=== PATIENT | male | born 1935 | race Caucasian/White ===

== ENCOUNTER 2019-07-24 15:19 | Inpatient (IN) | payer MEDICARE, OTHER ==
[~2019-07-24] VITALS: Ht 182.9 cm; Wt 100.0 kg
--- NOTE | 2019-07-24 15:55 | NUR ---
BRENT DAUGHTER [phone]
[2019-07-24 16:03] LABS: LYMPHOCYTES # (AUTO) 0.9 X10'3 (1.1-4.8); MEAN CORPUSCULAR HEMOGLOBIN 27.7 PG (27.0-31.0); MONOCYTES # (AUTO) 0.8 X10'3 (0-0.9); RED BLOOD COUNT 5.61 X10'6 (4.70-6.10); WHITE BLOOD COUNT 4.8 X10'3 (4.5-11.0)
[2019-07-24 16:05] LABS: BASOPHILS % (AUTO) 0.8 % (0-1); EOSINOPHILS % (AUTO) 0.5 % (0-6); HEMATOCRIT 47.3 % (42.0-52.0); HEMOGLOBIN 15.6 g/dl (14.0-17.9); LYMPHOCYTES % (AUTO) 19.4 % (21-51); MEAN CORPUSCULAR HGB CONC 32.9 g/dL (33.0-36.5); MEAN CORPUSCULAR VOLUME 84.4 FL (78-98); MEAN PLATELET VOLUME 9.8 FL (7.4-10.4); MONOCYTES % (AUTO) 16.8 % (2-12); NEUTROPHILS % (AUTO) 62.5 % (42-75); PLATELET COUNT 86 X10'3 (140-440); RED CELL DISTRIBUTION WIDTH 19.1 % (11.5-14.5)
[2019-07-24 16:15] LABS: PARTIAL THROMBOPLASTIN TIME 29 SECONDS (22-32)
[2019-07-24] MEDS ORDERED: MAGN64TA13 PO (16:18)
[2019-07-24] MEDS ORDERED: ALBU8.5H8 INH (16:18)
[2019-07-24] MEDS ORDERED: LOSA25TA41 PO (16:18)
[2019-07-24] MEDS ORDERED: METO-395 PO (16:18)
[2019-07-24] MEDS ORDERED: FURO40TA4 PO (16:18)
[2019-07-24] MEDS ORDERED: GABA-532 PO (16:18)
[2019-07-24] MEDS ORDERED: POTA20TA19 PO (16:22)
[2019-07-24 16:24] LABS: ANISOCYTOSIS 2+; GIANT PLATELET FEW; NUCLEATED RED BLOOD CELLS 1 /100WBC (0-0); PLATELET ESTIMATE DECREASED; TOTAL CELLS COUNTED 100
[2019-07-24 16:35] LABS: ALANINE AMINOTRANSFERASE 139 U/L (12-78); ALBUMIN 4.1 G/DL (3.4-5.0); ALBUMIN/GLOBULIN RATIO 0.9 (1.1-1.5); ALKALINE PHOSPHATASE 98 IU/L (46-116); ANION GAP 11 (8-16); ASPARTATE AMINO TRANSFERASE 153 U/L (10-37); BILIRUBIN,TOTAL 1.8 MG/DL (0.1-1.0); BLOOD UREA NITROGEN 55 MG/DL (7-18); BUN/CREATININE RATIO 25.5 (5.4-32.0); CALCIUM 9.3 MG/DL (8.5-10.1); CHLORIDE 104 MMOL/L (99-107); CREATININE 2.16 MG/DL (0.60-1.10); GLUCOSE 112 MG/DL (70-104); SODIUM 139 MMOL/L (135-145); TOTAL CARBON DIOXIDE 23.7 MMOL/L (24-32); TOTAL PROTEIN 8.5 G/DL (6.4-8.2); eGFR 29 ML/MIN
[2019-07-24 16:41] LABS: MAGNESIUM 2.1 MG/DL (1.5-2.4)
--- NOTE | 2019-07-24 16:45 | NUR ---
PT UNABLE TO CONTINUE TO TOLERATE GURNEY. PT PLACED IN RECLINER CHAIR AND REPORTS INCREASED COMFORT
--- NOTE | 2019-07-24 18:40 | NUR ---
LAB AT BEDSIDE FOR DRAW
--- NOTE | 2019-07-24 18:42 | NUR ---
NOTIFIED DR TIPTON THAT PT IS STLL WAITING TO HAND OFF HER NGOZI KAUFFMAN @[phone] FOR THE SCHDULED TAVR PROCEDURE SCHDULED FOR THIS COMING july [address] TIPTON ASKED UTILIZATION MANAGEMENT MANAGER TO PHONE NGOZI ZEE AGAIN FOR CONTACT
[2019-07-24] MEDS ORDERED: furosemide 10 MG/1 ML 10ml inj IV ONE ×3 (19:05→19:30)
[2019-07-24] MEDS ORDERED: furosemide 20 MG/2 ML vial IV ONE (19:30)
[2019-07-24] MEDS ORDERED: acetaminophen 325mg tablet PO PRN ×2 (19:50)
[2019-07-24] MEDS ORDERED: docusate sod 100mg capsule PO PRN (19:50)
[2019-07-24] MEDS ORDERED: mag hydrox/Alum hydrox/simeth 30ml oral suspension PO PRN (19:50)
[2019-07-24] MEDS ORDERED: ipratropium/albuterol 3ml nebule NEB PRN (19:50)
[2019-07-24] MEDS ORDERED: HYDROcodone/acetaminophen 10/325mg tab PO PRN (19:50)
[2019-07-24] MEDS ORDERED: HYDROcodone/acetaminophen 5mg/325mg tablet PO PRN (19:50)
[2019-07-24] MEDS ORDERED: ondansetron/PF 4mg/2ml inj IV PRN (19:50)
[2019-07-24] MEDS: heparin, porcine 5000 units/ml vial SQ SCH (20:00)
--- NOTE | 2019-07-24 20:21 | NUR ---
Patient in room ED 9. I have received report from Britany HERNANDEZ and had the opportunity to ask questions and awaiting arrival of patient to the PCU unit.
--- NOTE | 2019-07-24 20:24 | NUR ---
REPORT GIVEN TO LÁZARO HERNANDEZ
--- NOTE | 2019-07-24 20:40 | NUR ---
Patient arrived to the PCU unit at this time into room 3027B. He is alert and oriented and able to make his needs known. He transferred from the gurney to the bed independently using his rolling walker. is accompanying him. Vitals are stable. He is on 3 liters NC. Denies any pain at this time. All safety precautions in place. Call light in reach. Will continue to monitor.
[2019-07-24 20:45] VITALS: BP 116/77
[2019-07-24] MEDS ORDERED: losartan 25mg tablet PO SCH (21:00)
[2019-07-24] MEDS: magnesium Cl slow-release 64mg tablet PO SCH (21:07)
[2019-07-24 22:00] VITALS: BP 130/99
[2019-07-25 02:00] VITALS: BP 113/82
[2019-07-25 03:50] LABS: MEAN PLATELET VOLUME 8.8 FL (7.4-10.4); MONOCYTES # (AUTO) 0.8 X10'3 (0-0.9); RED BLOOD COUNT 5.04 X10'6 (4.70-6.10); WHITE BLOOD COUNT 4.4 X10'3 (4.5-11.0)
[2019-07-25 03:51] LABS: BASOPHILS % (AUTO) 0.8 % (0-1); EOSINOPHILS % (AUTO) 0.7 % (0-6); HEMATOCRIT 42.3 % (42.0-52.0); LYMPHOCYTES # (AUTO) 0.7 X10'3 (1.1-4.8); LYMPHOCYTES % (AUTO) 15.4 % (21-51); MEAN CORPUSCULAR HEMOGLOBIN 27.9 PG (27.0-31.0); MEAN CORPUSCULAR HGB CONC 33.2 g/dL (33.0-36.5); MEAN CORPUSCULAR VOLUME 83.9 FL (78-98); NEUTROPHILS # (AUTO) 2.9 X10'3 (1.8-7.7); NEUTROPHILS % (AUTO) 65.1 % (42-75); PLATELET COUNT 69 X10'3 (140-440); RED CELL DISTRIBUTION WIDTH 18.7 % (11.5-14.5)
[2019-07-25 04:00] LABS: ALANINE AMINOTRANSFERASE 120 U/L (12-78); ALBUMIN 3.5 G/DL (3.4-5.0); ALBUMIN/GLOBULIN RATIO 0.9 (1.1-1.5); ALKALINE PHOSPHATASE 86 IU/L (46-116); ANION GAP 12 (8-16); ASPARTATE AMINO TRANSFERASE 131 U/L (10-37); BILIRUBIN,TOTAL 1.6 MG/DL (0.1-1.0); BLOOD UREA NITROGEN 57 MG/DL (7-18); BUN/CREATININE RATIO 27.4 (5.4-32.0); CALCIUM 8.9 MG/DL (8.5-10.1); CHLORIDE 106 MMOL/L (99-107); CREATININE 2.08 MG/DL (0.60-1.10); GLUCOSE 116 MG/DL (70-104); POTASSIUM 4.5 MMOL/L (3.5-5.1); SODIUM 140 MMOL/L (135-145); TOTAL CARBON DIOXIDE 21.6 MMOL/L (24-32); TOTAL PROTEIN 7.3 G/DL (6.4-8.2); eGFR 31 ML/MIN
[2019-07-25 04:25] LABS: TOTAL CELLS COUNTED 100
[2019-07-25 04:26] LABS: PLATELET ESTIMATE DECREASED
[2019-07-25 04:27] LABS: ANISOCYTOSIS 2+; ELLIPTOCYTES 1+
--- NOTE | 2019-07-25 06:29 | NUR ---
Problems reprioritized. Patient report given, questions answered & plan of care reviewed with Grant HERNANDEZ.
--- NOTE | 2019-07-25 06:40 | NUR ---
Patient in room PCU 3027. I have received report from Kathya HERNANDEZ and had the opportunity to ask questions and assume patient care.
[2019-07-25 07:00] VITALS: BP 118/89
[2019-07-25] MEDS: magnesium Cl slow-release 64mg tablet PO SCH (07:47)
[2019-07-25] MEDS: heparin, porcine 5000 units/ml vial SQ SCH (07:48)
[2019-07-25] MEDS ORDERED: gabapentin 300mg capsule PO SCH (08:00)
[2019-07-25] MEDS ORDERED: metoprolol succinate 25mg (24-HOUR) SR. Tablet PO SCH (08:00)
[2019-07-25] MEDS ORDERED: furosemide 20 MG/2 ML vial IV SCH (08:00)
[2019-07-25] MEDS ORDERED: furosemide 40mg/4ml inj IV SCH (08:00)
[2019-07-25] MEDS ORDERED: potassium Cl 20 mEq SR tablet PO PRN ×2 (10:15)
[2019-07-25] MEDS ORDERED: potassium CL 10mEq/100ml bag 100 ML IV PRN (10:15)
[2019-07-25] MEDS ORDERED: magnesium 4gm in 100ml NS 100 ML IV PRN (10:15)
[2019-07-25] MEDS ORDERED: K and/or MAG REPLACEMENT MC SCH (10:15)
[2019-07-25] MEDS ORDERED: magnesium Cl slow-release 64mg tablet PO PRN (10:15)
[2019-07-25 11:00] VITALS: BP 118/89
[2019-07-25 15:00] VITALS: BP 107/76
--- NOTE | 2019-07-25 17:52 | NUR ---
Patient stable to be transferred to [place] by [facility] per MD orders for TAVR procedure, belongings sent with patient, report called, patient safely loaded on helicopter
== END 2019-07-25 17:35 | disposition short-term general hospital (02) | DRG 291 ==
LOC: ER 15:20 → ED HOLD 19:50 → UNDOADMIN 20:04 → PCU 3S 20:42 → ED HOLD 20:42
PROVIDERS: ADMIT Family Medicine; ATTEND Family Medicine
PROC: 5A09357 Assistance with Respiratory Ventilation, Less than 24 Consecutive Hours, Continuous Positive Airway Pressure (ICD-10-PCS; principal; 2019-07-25)
DX: I13.0 Hypertensive heart and chronic kidney disease with heart failure and stage 1 through stage 4 chronic kidney disease, or unspecified chronic kidney disease (principal); I50.23 Acute on chronic systolic (congestive) heart failure; N17.9 Acute kidney failure, unspecified; J96.10 Chronic respiratory failure, unspecified whether with hypoxia or hypercapnia; R74.0 Nonspecific elevation of levels of transaminase and lactic acid dehydrogenase [LDH]; D69.6 Thrombocytopenia, unspecified; I35.0 Nonrheumatic aortic (valve) stenosis; I25.10 Atherosclerotic heart disease of native coronary artery without angina pectoris; G47.33 Obstructive sleep apnea (adult) (pediatric); N40.0 Benign prostatic hyperplasia without lower urinary tract symptoms; N18.9 Chronic kidney disease, unspecified; E78.5 Hyperlipidemia, unspecified; Z99.81 Dependence on supplemental oxygen; Z86.14 Personal history of Methicillin resistant Staphylococcus aureus infection; Z87.891 Personal history of nicotine dependence; I25.2 Old myocardial infarction; Z95.1 Presence of aortocoronary bypass graft; Z95.810 Presence of automatic (implantable) cardiac defibrillator; Z88.8 Allergy status to other drugs, medicaments and biological substances
CPT/HCPCS: 36415; 71045; 80053; 83735; 83880; 84484; 85025; 85610; 85730; 87081; 93005; 94660; 94760; 96374; 97110; 97116; 97161; 97530; 99291; G0378; J1940